=== PATIENT | male | born 1955 | race Caucasian/White ===

== ENCOUNTER 2018-08-13 14:20 | Inpatient (IN) | payer OTHER ==
[~2018-08-13 14:20] MED LIST: CEFAZOLIN 1 GM INJ; DEXAMETHASONE 4 MG/ML 1 ML INJ; FENTAnyl 50 MCG/ML VIAL; METOCLOPRAMIDE 10 MG INJ; MIDAZOLAM 1 MG/ML 2 ML INJ; ONDANSETRON 4 MG INJ; PHENYLephrine (100 MCG/ML) 5ML SYG; PROPOFOL 20 ML; ROCURONIUM 50 MG INJ; SUGAMMADEX SODIUM 200 MG/2 ML VIAL IV
[2018-08-13] MEDS ORDERED: ACETAMINOPHEN 325 MG TAB PO (16:30)
[2018-08-13] MEDS ORDERED: NACL 0.9% 3 ML SYG IV (16:30)
[2018-08-13] MEDS ORDERED: HYDROCODONE/APAP (5/325) TAB PO (16:30)
[2018-08-13] MEDS ORDERED: ONDANSETRON 4 MG INJ IV (16:30)
[2018-08-13] MEDS ORDERED: DOCUSATE SODIUM 100 MG CAP PO (16:30)
[2018-08-13] MEDS: metroNIDAZOLE 500 MG/NS (PMX) 100 ML IVPB ×2 (17:34→23:19)
[2018-08-13] MEDS: SOD CHLORIDE 0.9% 1,000 ML IV (17:34)
[2018-08-13] MEDS: CIPROFLOXACIN 400MG/D5W 200 ML IVPB (20:20)
[2018-08-14 05:01] LABS: ADD MAN DIFF? NO
[2018-08-14 05:02] LABS: BASOPHILS % 0.2 % (0.0-2.0); EOSINOPHILS # 0.1 10^3/ul (0.0-0.5); EOSINOPHILS % 1.1 % (0.0-7.0); HEMATOCRIT 39.5 % (42.0-52.0); HEMOGLOBIN 13.4 g/dl (14.0-18.0); LYMPHOCYTES # 0.8 10^3/ul (0.8-2.9); LYMPHOCYTES % 12.3 % (15.0-51.0); MEAN CORPUSCULAR HEMOGLOBIN 32.2 pg (29.0-33.0); MEAN CORPUSCULAR HGB CONC 33.9 g/dl (32.0-37.0); MEAN PLATELET VOLUME 9.3 fl (7.4-10.4); MONOCYTE # 0.3 10^3/ul (0.3-0.9); MONOCYTES % 5.4 % (0.0-11.0); PLATELET COUNT 173 10^3/UL (140-415); RED BLOOD COUNT 4.16 10^6/ul (4.70-6.10); RED CELL DISTRIBUTION WIDTH 13.2 % (11.5-14.5)
[2018-08-14 05:02] LABS: WHITE BLOOD COUNT 6.3 10^3/ul (4.8-10.8)
[2018-08-14 05:28] LABS: INR 1.24; PROTIME 15.8 Sec (11.9-14.9); PT RATIO 1.2
[2018-08-14 05:35] LABS: ALANINE AMINOTRANSFERASE 97 IU/L (13-69); ALBUMIN/GLOBULIN RATIO 0.88; ALKALINE PHOSPHATASE 177 IU/L (42-121); ANION GAP 10 (8-16); ASPARTATE AMINO TRANSFERASE 63 IU/L (15-46); BILIRUBIN,INDIRECT 1.3 mg/dl (0-1.1); BILIRUBIN,TOTAL 2.3 mg/dl (0.2-1.3); BLOOD UREA NITROGEN 13 mg/dl (7-20); CALCIUM 8.3 mg/dl (8.4-10.2); CARBON DIOXIDE 28 mmol/L (21-31); CHLORIDE 105 mmol/L (97-110); CREATININE 0.87 mg/dl (0.61-1.24); GLUCOSE 105 mg/dl (70-220); MAGNESIUM 2.1 mg/dl (1.7-2.5); PHOSPHORUS 3.1 mg/dl (2.5-4.9); SODIUM 139 mmol/L (135-144); TOTAL PROTEIN 6.4 g/dl (6.1-8.1)
[2018-08-14] MEDS: PANTOPRAZOLE 40 MG INJ IV (06:16)
[2018-08-14] MEDS: metroNIDAZOLE 500 MG/NS (PMX) 100 ML IVPB ×3 (06:16→22:07)
[2018-08-14] MEDS: IBUPROFEN 600 MG TAB PO (06:18)
[2018-08-14] MEDS: SOD CHLORIDE 0.9% 1,000 ML IV ×2 (06:50→14:16)
[2018-08-14 08:18] LABS: HEMOGLOBIN A1C 5.4 % (0-5.9)
[2018-08-14] MEDS: CIPROFLOXACIN 400MG/D5W 200 ML IVPB ×2 (08:42→20:52)
[2018-08-14] MEDS ORDERED: IOHEXOL 300MG/ML 30 ML BTL (15:21)
[2018-08-14] MEDS ORDERED: INDOMETHACIN 50 MG SUPP PR (15:30)
[2018-08-14] MEDS ORDERED: METOCLOPRAMIDE 10 MG INJ IV (16:00)
[2018-08-14] MEDS ORDERED: DIPHENHYDRAMINE 50 MG INJ IV (16:00)
[2018-08-14] MEDS ORDERED: MEPERIDINE 25 MG INJ IV (16:00)
[2018-08-14] MEDS ORDERED: FENTAnyl 50 MCG/ML VIAL IV ×2 (16:00)
[2018-08-14] MEDS ORDERED: ONDANSETRON 4 MG INJ IV (16:00)
[2018-08-14] MEDS ORDERED: EPHEDrine SULFATE 50 MG/5 ML SYG IV (16:00)
[2018-08-14] MEDS ORDERED: hydrALAzine 20 MG INJ IV (16:00)
[2018-08-14] MEDS ORDERED: HYDROmorphONE 1 MG/5 ML IV SYRINGE IV ×2 (16:00)
[2018-08-14] MEDS ORDERED: LABETALOL HCL 20MG INJ IV (16:00)
[2018-08-15 05:16] LABS: ADD MAN DIFF? NO
[2018-08-15 05:20] LABS: WHITE BLOOD COUNT 4.9 10^3/ul (4.8-10.8)
[2018-08-15 05:20] LABS: ABNORMAL IP MESSAGE 1; HEMATOCRIT 40.2 % (42.0-52.0); HEMOGLOBIN 13.7 g/dl (14.0-18.0); LYMPHOCYTES # 0.4 10^3/ul (0.8-2.9); LYMPHOCYTES % 8.4 % (15.0-51.0); MEAN CORPUSCULAR HEMOGLOBIN 32.2 pg (29.0-33.0); MEAN CORPUSCULAR HGB CONC 34.1 g/dl (32.0-37.0); MEAN CORPUSCULAR VOLUME 94.4 fl (82.0-101.0); MEAN PLATELET VOLUME 9.2 fl (7.4-10.4); MONOCYTE # 0.2 10^3/ul (0.3-0.9); MONOCYTES % 4.1 % (0.0-11.0); NEUTROPHIL # 4.2 10^3/ul (1.6-7.5); NEUTROPHILS % 86.7 % (39.0-77.0); PLATELET COUNT 192 10^3/UL (140-415); POSITIVE DIFF @See below; RED BLOOD COUNT 4.26 10^6/ul (4.70-6.10); RED CELL DISTRIBUTION WIDTH 12.5 % (11.5-14.5)
[2018-08-15 05:42] LABS: ALANINE AMINOTRANSFERASE 65 IU/L (13-69); ALBUMIN 3.3 g/dl (3.3-4.9); ALBUMIN/GLOBULIN RATIO 0.97; ALKALINE PHOSPHATASE 159 IU/L (42-121); ANION GAP 11 (8-16); ASPARTATE AMINO TRANSFERASE 38 IU/L (15-46); BILIRUBIN,INDIRECT 0.6 mg/dl (0-1.1); BILIRUBIN,TOTAL 0.6 mg/dl (0.2-1.3); BLOOD UREA NITROGEN 13 mg/dl (7-20); CALCIUM 8.1 mg/dl (8.4-10.2); CARBON DIOXIDE 29 mmol/L (21-31); CHLORIDE 107 mmol/L (97-110); GLUCOSE 157 mg/dl (70-220); POTASSIUM 4.6 mmol/L (3.5-5.1); SODIUM 142 mmol/L (135-144); TOTAL PROTEIN 6.7 g/dl (6.1-8.1)
[2018-08-15] MEDS: metroNIDAZOLE 500 MG/NS (PMX) 100 ML IVPB ×3 (06:03→22:51)
[2018-08-15] MEDS: PANTOPRAZOLE 40 MG INJ IV (06:03)
[2018-08-15] MEDS: CIPROFLOXACIN 400MG/D5W 200 ML IVPB ×2 (09:13→20:47)
[2018-08-15] MEDS: SOD CHLORIDE 0.9% 1,000 ML IV (12:21)
[2018-08-16 05:17] LABS: ADD MAN DIFF? NO
[2018-08-16 05:20] LABS: WHITE BLOOD COUNT 5.1 10^3/ul (4.8-10.8)
[2018-08-16 05:20] LABS: BASOPHILS % 0.4 % (0.0-2.0); EOSINOPHILS # 0.1 10^3/ul (0.0-0.5); EOSINOPHILS % 1.2 % (0.0-7.0); HEMATOCRIT 38.3 % (42.0-52.0); LYMPHOCYTES # 1.2 10^3/ul (0.8-2.9); LYMPHOCYTES % 24.2 % (15.0-51.0); MEAN CORPUSCULAR HGB CONC 33.9 g/dl (32.0-37.0); MEAN CORPUSCULAR VOLUME 94.3 fl (82.0-101.0); MEAN PLATELET VOLUME 9.2 fl (7.4-10.4); MONOCYTE # 0.3 10^3/ul (0.3-0.9); MONOCYTES % 6.3 % (0.0-11.0); NEUTROPHIL # 3.4 10^3/ul (1.6-7.5); NEUTROPHILS % 67.1 % (39.0-77.0); PLATELET COUNT 183 10^3/UL (140-415); RED BLOOD COUNT 4.06 10^6/ul (4.70-6.10); RED CELL DISTRIBUTION WIDTH 12.8 % (11.5-14.5)
[2018-08-16] MEDS: PANTOPRAZOLE 40 MG INJ IV (05:23)
[2018-08-16] MEDS: metroNIDAZOLE 500 MG/NS (PMX) 100 ML IVPB ×2 (05:23→14:15)
[2018-08-16 05:39] LABS: ANION GAP 9 (8-16); BLOOD UREA NITROGEN 13 mg/dl (7-20); CALCIUM 8.2 mg/dl (8.4-10.2); CARBON DIOXIDE 29 mmol/L (21-31); CHLORIDE 109 mmol/L (97-110); CREATININE 0.89 mg/dl (0.61-1.24); GLUCOSE 116 mg/dl (70-220); POTASSIUM 4.4 mmol/L (3.5-5.1); SODIUM 143 mmol/L (135-144)
[2018-08-16] MEDS: CIPROFLOXACIN 400MG/D5W 200 ML IVPB (08:00)
== END 2018-08-16 16:50 | disposition home or self-care (01) | DRG 920 ==
LOC: MS1 14:20
PROC: 0FPB8DZ Removal of Intraluminal Device from Hepatobiliary Duct, Via Natural or Artificial Opening Endoscopic (ICD-10-PCS; principal; 2018-08-14 13:30)
PROC: 0FC98ZZ Extirpation of Matter from Common Bile Duct, Via Natural or Artificial Opening Endoscopic (ICD-10-PCS; 2018-08-14 13:30)
PROC: 0FB98ZX Excision of Common Bile Duct, Via Natural or Artificial Opening Endoscopic, Diagnostic (ICD-10-PCS; 2018-08-14 13:30)
DX: T85.79XA Infection and inflammatory reaction due to other internal prosthetic devices, implants and grafts, initial encounter (principal); K80.31 Calculus of bile duct with cholangitis, unspecified, with obstruction; E87.1 Hypo-osmolality and hyponatremia; R14.0 Abdominal distension (gaseous); K70.30 Alcoholic cirrhosis of liver without ascites; R16.1 Splenomegaly, not elsewhere classified; D64.9 Anemia, unspecified
CPT/HCPCS: 74330; 80048; 80053; 83036; 83735; 84100; 85025; 85610; 87040; 88305; 88312; 88313; 90686

== ENCOUNTER 2018-09-10 13:58 | Inpatient (IN) | payer OTHER ==
[2018-09-10 16:28] LABS: ADD MAN DIFF? NO
[2018-09-10 16:32] LABS: WHITE BLOOD COUNT 10.1 10^3/ul (4.8-10.8)
[2018-09-10 16:32] LABS: ABNORMAL IP MESSAGE 1; BASOPHILS % 0.3 % (0.0-2.0); EOSINOPHILS % 0.1 % (0.0-7.0); HEMATOCRIT 44.2 % (42.0-52.0); HEMOGLOBIN 15.5 g/dl (14.0-18.0); LYMPHOCYTES # 0.3 10^3/ul (0.8-2.9); LYMPHOCYTES % 3.3 % (15.0-51.0); MEAN CORPUSCULAR HEMOGLOBIN 32.4 pg (29.0-33.0); MEAN CORPUSCULAR HGB CONC 35.1 g/dl (32.0-37.0); MEAN CORPUSCULAR VOLUME 92.3 fl (82.0-101.0); MEAN PLATELET VOLUME 9.8 fl (7.4-10.4); MONOCYTE # 0.5 10^3/ul (0.3-0.9); MONOCYTES % 5.3 % (0.0-11.0); NEUTROPHIL # 9.1 10^3/ul (1.6-7.5); NEUTROPHILS % 89.8 % (39.0-77.0); PLATELET COUNT 211 10^3/UL (140-415); POSITIVE DIFF @See below; RED BLOOD COUNT 4.79 10^6/ul (4.70-6.10); RED CELL DISTRIBUTION WIDTH 12.3 % (11.5-14.5)
[2018-09-10] MEDS: ONDANSETRON 4 MG INJ IV (16:36)
[2018-09-10] MEDS: SODIUM CHLORIDE 0.9% 1L BAG IV* (16:36)
[2018-09-10] MEDS: PIPER-TAZO 3.375 GM IV (PMX) 100 ML IVPB (16:37)
[2018-09-10 16:46] LABS: ADD UMIC NO; UR ASCORBIC ACID NEGATIVE (NEGATIVE); UR BILIRUBIN (Dip) 1+ mg/dL (NEGATIVE); UR BLOOD (Dip) NEGATIVE (NEGATIVE); UR CLARITY CLEAR (CLEAR); UR COLOR AMBER (YELLOW); UR GLUCOSE (Dip) 1+ mg/dL (NEGATIVE); UR KETONES (Dip) NEGATIVE (NEGATIVE); UR LEUKOCYTE ESTERASE (Dip) NEGATIVE Leu/ul (NEGATIVE); UR NITRITE (Dip) NEGATIVE (NEGATIVE); UR SPECIFIC GRAVITY (Dip) 1.019 (1.003-1.030); UR TOTAL PROTEIN (Dip) NEGATIVE (NEGATIVE); UR UROBILINOGEN (Dip) 2+ mg/dL (NEGATIVE)
[2018-09-10 16:48] LABS: ALANINE AMINOTRANSFERASE 144 IU/L (13-69); ALBUMIN 3.9 g/dl (3.3-4.9); ALKALINE PHOSPHATASE 504 IU/L (42-121); ANION GAP 13 (5-13); ASPARTATE AMINO TRANSFERASE 75 IU/L (15-46); BILIRUBIN,INDIRECT 0.9 mg/dl (0-1.1); BILIRUBIN,TOTAL 3.3 mg/dl (0.2-1.3); BLOOD UREA NITROGEN 13 mg/dl (7-20); CALCIUM 9.4 mg/dl (8.4-10.2); CARBON DIOXIDE 23 mmol/L (21-31); CHLORIDE 101 mmol/L (97-110); Estimated GFR > 60 mL/min (>60); GLUCOSE 148 mg/dl (70-220); LIPASE 94 U/L (23-300); POTASSIUM 4.3 mmol/L (3.5-5.1); SODIUM 137 mmol/L (135-144); TOTAL PROTEIN 7.8 g/dl (6.1-8.1)
[2018-09-10 16:49] LABS: LACTIC ACID 1.8 mmol/L (0.5-2.0)
[2018-09-10 16:53] LABS: INR 0.95; PARTIAL THROMBOPLASTIN TIME 26.7 Sec (23.0-35.0); PROTIME 12.8 Sec (11.9-14.9)
[2018-09-10 17:00] LABS: TROPONIN-I < 0.012 ng/ml (0.000-0.120)
[2018-09-10] MEDS: morphine 4 MG/ML VIAL IV (17:26)
[2018-09-10] MEDS: IBUPROFEN 600 MG TAB PO (17:26)
[2018-09-10] MEDS: VANCOMYCIN 1 GM (PMX) 250 ML IVPB (17:27)
[2018-09-10 19:04] LABS: LACTIC ACID 0.9 mmol/L (0.5-2.0)
[2018-09-10] MEDS ORDERED: DOCUSATE SODIUM 100 MG CAP PO (19:30)
[2018-09-10] MEDS ORDERED: NACL 0.9% 3 ML SYG IV (19:30)
[2018-09-10] MEDS ORDERED: ACETAMINOPHEN 325 MG TAB PO ×2 (19:30)
[2018-09-10] MEDS ORDERED: ACETAMINOPHEN 650 MG SUPP PR (19:30)
[2018-09-10] MEDS: DEXTROSE 5%-0.45% NACL 1,000 ML IV (20:23)
[2018-09-10] MEDS: CEFTRIAXONE 1 GM/50 ML (PMX) 50 ML IVPB (20:24)
[2018-09-10 21:00] LABS: LACTIC ACID 0.7 mmol/L (0.5-2.0)
[2018-09-11] MEDS: URSODIOL 300 MG CAP PO ×3 (00:41→20:28)
[2018-09-11 05:34] LABS: ADD MAN DIFF? NO
[2018-09-11 05:40] LABS: WHITE BLOOD COUNT 6.4 10^3/ul (4.8-10.8)
[2018-09-11 05:40] LABS: BASOPHILS % 0.6 % (0.0-2.0); EOSINOPHILS # 0.1 10^3/ul (0.0-0.5); EOSINOPHILS % 0.8 % (0.0-7.0); HEMATOCRIT 40.2 % (42.0-52.0); HEMOGLOBIN 13.7 g/dl (14.0-18.0); LYMPHOCYTES # 0.7 10^3/ul (0.8-2.9); LYMPHOCYTES % 11.5 % (15.0-51.0); MEAN CORPUSCULAR HEMOGLOBIN 31.9 pg (29.0-33.0); MEAN CORPUSCULAR HGB CONC 34.1 g/dl (32.0-37.0); MEAN CORPUSCULAR VOLUME 93.7 fl (82.0-101.0); MEAN PLATELET VOLUME 10.1 fl (7.4-10.4); MONOCYTE # 0.5 10^3/ul (0.3-0.9); MONOCYTES % 7.9 % (0.0-11.0); NEUTROPHIL # 4.9 10^3/ul (1.6-7.5); NEUTROPHILS % 76.5 % (39.0-77.0); PLATELET COUNT 187 10^3/UL (140-415); RED BLOOD COUNT 4.29 10^6/ul (4.70-6.10); RED CELL DISTRIBUTION WIDTH 12.6 % (11.5-14.5)
[2018-09-11 06:28] LABS: ALANINE AMINOTRANSFERASE 129 IU/L (13-69); ALBUMIN 3.4 g/dl (3.3-4.9); ALBUMIN/GLOBULIN RATIO 0.89; ALKALINE PHOSPHATASE 390 IU/L (42-121); ANION GAP 8 (5-13); ASPARTATE AMINO TRANSFERASE 86 IU/L (15-46); BILIRUBIN,INDIRECT 0.9 mg/dl (0-1.1); BLOOD UREA NITROGEN 10 mg/dl (7-20); CALCIUM 8.6 mg/dl (8.4-10.2); CARBON DIOXIDE 26 mmol/L (21-31); CHLORIDE 106 mmol/L (97-110); CREATININE 0.72 mg/dl (0.61-1.24); Estimated GFR > 60 mL/min (>60); GLUCOSE 114 mg/dl (70-220); POTASSIUM 3.9 mmol/L (3.5-5.1); SODIUM 140 mmol/L (135-144); TOTAL PROTEIN 7.2 g/dl (6.1-8.1)
[2018-09-11] MEDS: morphine 2 MG INJ IV (06:30)
[2018-09-11 09:03] LABS: HEMOGLOBIN A1C 5.3 % (0-5.9)
[2018-09-11] MEDS: PANTOPRAZOLE (EC) 40 MG TAB PO (09:30)
[2018-09-11] MEDS: LOSARTAN 50 MG TAB PO (09:31)
[2018-09-11] MEDS: DEXTROSE 5%-0.45% NACL 1,000 ML IV ×2 (12:00→23:09)
[2018-09-11] MEDS: metroNIDAZOLE 500 MG/NS (PMX) 100 ML IVPB ×2 (15:16→22:58)
[2018-09-11] MEDS: CEFTRIAXONE 1 GM/50 ML (PMX) 50 ML IVPB (20:28)
[2018-09-12 05:26] LABS: WHITE BLOOD COUNT 5.3 10^3/ul (4.8-10.8)
[2018-09-12 05:26] LABS: ADD MAN DIFF? NO; BASOPHILS % 0.8 % (0.0-2.0); EOSINOPHILS # 0.1 10^3/ul (0.0-0.5); EOSINOPHILS % 1.9 % (0.0-7.0); HEMATOCRIT 40.8 % (42.0-52.0); HEMOGLOBIN 14.1 g/dl (14.0-18.0); LYMPHOCYTES # 0.9 10^3/ul (0.8-2.9); LYMPHOCYTES % 17.5 % (15.0-51.0); MEAN CORPUSCULAR HEMOGLOBIN 32.2 pg (29.0-33.0); MEAN CORPUSCULAR HGB CONC 34.6 g/dl (32.0-37.0); MEAN CORPUSCULAR VOLUME 93.2 fl (82.0-101.0); MEAN PLATELET VOLUME 9.9 fl (7.4-10.4); MONOCYTE # 0.4 10^3/ul (0.3-0.9); MONOCYTES % 7.4 % (0.0-11.0); NEUTROPHIL # 3.6 10^3/ul (1.6-7.5); NEUTROPHILS % 67.6 % (39.0-77.0); PLATELET COUNT 220 10^3/UL (140-415); RED BLOOD COUNT 4.38 10^6/ul (4.70-6.10); RED CELL DISTRIBUTION WIDTH 12.4 % (11.5-14.5)
[2018-09-12] MEDS: metroNIDAZOLE 500 MG/NS (PMX) 100 ML IVPB ×3 (05:42→21:33)
[2018-09-12 05:58] LABS: ALANINE AMINOTRANSFERASE 100 IU/L (13-69); ALBUMIN 3.7 g/dl (3.3-4.9); ALBUMIN/GLOBULIN RATIO 1.05; ALKALINE PHOSPHATASE 385 IU/L (42-121); ANION GAP 11 (5-13); ASPARTATE AMINO TRANSFERASE 69 IU/L (15-46); BILIRUBIN,INDIRECT 0.7 mg/dl (0-1.1); BILIRUBIN,TOTAL 2.7 mg/dl (0.2-1.3); BLOOD UREA NITROGEN 12 mg/dl (7-20); CALCIUM 8.9 mg/dl (8.4-10.2); CARBON DIOXIDE 26 mmol/L (21-31); CHLORIDE 103 mmol/L (97-110); CREATININE 0.75 mg/dl (0.61-1.24); Estimated GFR > 60 mL/min (>60); GLUCOSE 146 mg/dl (70-220); POTASSIUM 4.1 mmol/L (3.5-5.1); SODIUM 140 mmol/L (135-144); TOTAL PROTEIN 7.2 g/dl (6.1-8.1)
[2018-09-12] MEDS: URSODIOL 300 MG CAP PO ×3 (09:00→21:33)
[2018-09-12] MEDS: PANTOPRAZOLE (EC) 40 MG TAB PO ×2 (09:00→12:57)
[2018-09-12] MEDS: LOSARTAN 50 MG TAB PO ×2 (09:00→12:58)
[2018-09-12] MEDS: DEXTROSE 5%-0.45% NACL 1,000 ML IV (09:39)
[2018-09-12] MEDS: AMLODIPINE 5 MG TAB PO (12:57)
[2018-09-12] MEDS: morphine 2 MG INJ IV (19:38)
[2018-09-12] MEDS: CEFTRIAXONE 1 GM/50 ML (PMX) 50 ML IVPB (19:38)
[2018-09-13 04:52] LABS: ADD MAN DIFF? NO
[2018-09-13 04:54] LABS: ABNORMAL IP MESSAGE 1; BASOPHIL # 0.1 10^3/ul (0.0-0.1); BASOPHILS % 1.4 % (0.0-2.0); EOSINOPHILS # 0.1 10^3/ul (0.0-0.5); EOSINOPHILS % 2.4 % (0.0-7.0); HEMATOCRIT 42.3 % (42.0-52.0); HEMOGLOBIN 14.4 g/dl (14.0-18.0); LYMPHOCYTES % 16.6 % (15.0-51.0); MEAN CORPUSCULAR HEMOGLOBIN 31.4 pg (29.0-33.0); MEAN CORPUSCULAR VOLUME 92.4 fl (82.0-101.0); MEAN PLATELET VOLUME 9.5 fl (7.4-10.4); MONOCYTE # 0.4 10^3/ul (0.3-0.9); MONOCYTES % 7.5 % (0.0-11.0); NEUTROPHIL # 3.7 10^3/ul (1.6-7.5); NEUTROPHILS % 64.8 % (39.0-77.0); PLATELET COUNT 247 10^3/UL (140-415); POSITIVE DIFF @See below; RED BLOOD COUNT 4.58 10^6/ul (4.70-6.10); RED CELL DISTRIBUTION WIDTH 12.4 % (11.5-14.5)
[2018-09-13 04:54] LABS: WHITE BLOOD COUNT 5.7 10^3/ul (4.8-10.8)
[2018-09-13] MEDS: DEXTROSE 5%-0.45% NACL 1,000 ML IV ×2 (05:10→21:12)
[2018-09-13] MEDS: metroNIDAZOLE 500 MG/NS (PMX) 100 ML IVPB ×3 (05:10→22:09)
[2018-09-13 05:17] LABS: AMYLASE 63 U/L (11-123)
[2018-09-13 05:25] LABS: ALANINE AMINOTRANSFERASE 95 IU/L (13-69); ALBUMIN 3.7 g/dl (3.3-4.9); ALBUMIN/GLOBULIN RATIO 1.08; ALKALINE PHOSPHATASE 396 IU/L (42-121); ANION GAP 11 (5-13); ASPARTATE AMINO TRANSFERASE 62 IU/L (15-46); BILIRUBIN,INDIRECT 0.7 mg/dl (0-1.1); BILIRUBIN,TOTAL 2.2 mg/dl (0.2-1.3); BLOOD UREA NITROGEN 12 mg/dl (7-20); CALCIUM 8.8 mg/dl (8.4-10.2); CARBON DIOXIDE 26 mmol/L (21-31); CHLORIDE 104 mmol/L (97-110); CREATININE 0.84 mg/dl (0.61-1.24); Estimated GFR > 60 mL/min (>60); GLUCOSE 127 mg/dl (70-220); POTASSIUM 4.2 mmol/L (3.5-5.1); SODIUM 141 mmol/L (135-144); TOTAL PROTEIN 7.1 g/dl (6.1-8.1)
[2018-09-13 05:46] LABS: CARCINOEMBRYONIC ANTIGEN 1.7 ng/ml (0.0-5.0)
[2018-09-13 05:51] LABS: CANCER ANTIGEN 19-9 51.4 U/ml (0.0-37.0)
[2018-09-13] MEDS: URSODIOL 300 MG CAP PO ×2 (09:06→21:06)
[2018-09-13] MEDS: LOSARTAN 50 MG TAB PO (09:06)
[2018-09-13] MEDS: PANTOPRAZOLE (EC) 40 MG TAB PO (09:06)
[2018-09-13] MEDS: AMLODIPINE 5 MG TAB PO (09:07)
[2018-09-13] MEDS: BISACODYL (EC) 5 MG TAB PO (09:07)
[2018-09-13] MEDS: MAGNESIUM HYDROXIDE 30ML CUP PO (09:07)
[2018-09-13] MEDS: DOCUSATE SODIUM 100 MG CAP PO (09:07)
[2018-09-13] MEDS: morphine LIQ (10 MG/5 ML) CUP PO (18:51)
[2018-09-13] MEDS: CEFTRIAXONE 1 GM/50 ML (PMX) 50 ML IVPB (21:06)
[2018-09-13] MEDS: ONDANSETRON 4 MG INJ IV (21:12)
[2018-09-14] MEDS: metroNIDAZOLE 500 MG/NS (PMX) 100 ML IVPB ×3 (06:11→22:07)
[2018-09-14] MEDS: URSODIOL 300 MG CAP PO ×2 (09:00→20:59)
[2018-09-14] MEDS: PANTOPRAZOLE (EC) 40 MG TAB PO (09:00)
[2018-09-14] MEDS: DEXTROSE 5%-0.45% NACL 1,000 ML IV ×2 (09:06→22:07)
[2018-09-14] MEDS: LOSARTAN 50 MG TAB PO (10:08)
[2018-09-14] MEDS: AMLODIPINE 5 MG TAB PO (10:08)
[2018-09-14] MEDS ORDERED: PROPOFOL 20 ML (16:25)
[2018-09-14] MEDS ORDERED: ROCURONIUM 50 MG INJ (16:25)
[2018-09-14] MEDS ORDERED: NEOSTIGMINE 3 MG/3 ML SYRINGE (16:25)
[2018-09-14] MEDS ORDERED: GLYCOPYRROLATE 0.4 MG INJ (16:25)
[2018-09-14] MEDS ORDERED: CEFAZOLIN 1 GM INJ (16:25)
[2018-09-14] MEDS ORDERED: ONDANSETRON 4 MG INJ (16:28)
[2018-09-14] MEDS ORDERED: FENTAnyl 50 MCG/ML VIAL (16:28)
[2018-09-14] MEDS ORDERED: DEXAMETHASONE 4 MG/ML 1 ML INJ (16:28)
[2018-09-14] MEDS ORDERED: MIDAZOLAM 1 MG/ML 2 ML INJ (16:28)
[2018-09-14] MEDS ORDERED: LABETALOL HCL 20MG INJ IV (17:30)
[2018-09-14] MEDS ORDERED: FENTAnyl 50 MCG/ML VIAL IV ×2 (17:30)
[2018-09-14] MEDS ORDERED: METOCLOPRAMIDE 10 MG INJ IV (17:30)
[2018-09-14] MEDS ORDERED: HYDROmorphONE 1 MG/5 ML IV SYRINGE IV ×2 (17:30)
[2018-09-14] MEDS ORDERED: hydrALAzine 20 MG INJ IV (17:30)
[2018-09-14] MEDS ORDERED: MEPERIDINE 25 MG INJ IV (17:30)
[2018-09-14] MEDS ORDERED: ONDANSETRON 4 MG INJ IV (17:30)
[2018-09-14] MEDS ORDERED: SUGAMMADEX SODIUM 200 MG/2 ML VIAL IV (18:18)
[2018-09-14] MEDS: CEFTRIAXONE 1 GM/50 ML (PMX) 50 ML IVPB (20:59)
[2018-09-15 05:15] LABS: ADD MAN DIFF? NO
[2018-09-15 05:18] LABS: WHITE BLOOD COUNT 5.3 10^3/ul (4.8-10.8)
[2018-09-15 05:18] LABS: ABNORMAL IP MESSAGE 1; BASOPHILS % 0.4 % (0.0-2.0); HEMATOCRIT 42.7 % (42.0-52.0); HEMOGLOBIN 14.5 g/dl (14.0-18.0); LYMPHOCYTES # 0.5 10^3/ul (0.8-2.9); LYMPHOCYTES % 9.7 % (15.0-51.0); MEAN CORPUSCULAR HEMOGLOBIN 31.9 pg (29.0-33.0); MEAN CORPUSCULAR VOLUME 94.1 fl (82.0-101.0); MEAN PLATELET VOLUME 9.7 fl (7.4-10.4); MONOCYTE # 0.1 10^3/ul (0.3-0.9); MONOCYTES % 2.1 % (0.0-11.0); NEUTROPHIL # 4.3 10^3/ul (1.6-7.5); NEUTROPHILS % 81.2 % (39.0-77.0); PLATELET COUNT 261 10^3/UL (140-415); POSITIVE DIFF @See below; RED BLOOD COUNT 4.54 10^6/ul (4.70-6.10); RED CELL DISTRIBUTION WIDTH 12.3 % (11.5-14.5)
[2018-09-15 05:47] LABS: ALANINE AMINOTRANSFERASE 81 IU/L (13-69); ALBUMIN 3.7 g/dl (3.3-4.9); ALBUMIN/GLOBULIN RATIO 0.97; ALKALINE PHOSPHATASE 381 IU/L (42-121); ANION GAP 8 (5-13); ASPARTATE AMINO TRANSFERASE 50 IU/L (15-46); BILIRUBIN,INDIRECT 0.9 mg/dl (0-1.1); BILIRUBIN,TOTAL 1.3 mg/dl (0.2-1.3); BLOOD UREA NITROGEN 16 mg/dl (7-20); CALCIUM 8.5 mg/dl (8.4-10.2); CARBON DIOXIDE 26 mmol/L (21-31); CHLORIDE 103 mmol/L (97-110); CREATININE 0.89 mg/dl (0.61-1.24); Estimated GFR > 60 mL/min (>60); GLUCOSE 208 mg/dl (70-220); POTASSIUM 4.7 mmol/L (3.5-5.1); SODIUM 137 mmol/L (135-144); TOTAL PROTEIN 7.5 g/dl (6.1-8.1)
[2018-09-15 06:06] LABS: PHOSPHORUS 4.5 mg/dl (2.5-4.9)
[2018-09-15 06:06] LABS: MAGNESIUM 2.1 mg/dl (1.7-2.5)
[2018-09-15] MEDS: metroNIDAZOLE 500 MG/NS (PMX) 100 ML IVPB (06:18)
[2018-09-15 06:55] LABS: BAND NEUTROPHILS #M 0.4 10^3/ul (0.0-0.6); BAND NEUTROPHILS % (M) 9 % (0-4); LYMPHOCYTES #M 0.6 10^3/ul (0.8-2.9); LYMPHOCYTES % (M) 12 % (15-51); METAMYELOCYTES #M 0.1 10^3/ul (0.0-0.0); METAMYELOCYTES %M 2 % (0-0); MONOCYTES % (M) 1 % (0-11); MYELOCYTES #M 0.1 10^3/ul (0.0-0.0); MYELOCYTES % (M) 3 % (0-0); PLATELET ESTIMATE NORMAL; POLYCHROMASIA 3+ (0-0); SEG NEUT #M 3.9 10^3/ul (1.6-7.5); SEGMENTED NEUTROPHILS (M) % 73 % (39-77); SMUDGE%M 9 % (0-0)
[2018-09-15] MEDS: AMLODIPINE 5 MG TAB PO (08:35)
[2018-09-15] MEDS: PANTOPRAZOLE (EC) 40 MG TAB PO (08:35)
[2018-09-15] MEDS: LOSARTAN 50 MG TAB PO (08:36)
[2018-09-15] MEDS: URSODIOL 300 MG CAP PO (08:36)
== END 2018-09-15 15:30 | disposition home or self-care (01) | DRG 444 ==
LOC: E/R 13:58 → MS1 17:52
PROC: 0FC98ZZ Extirpation of Matter from Common Bile Duct, Via Natural or Artificial Opening Endoscopic (ICD-10-PCS; principal; 2018-09-14 13:00)
PROC: 0F798DZ Dilation of Common Bile Duct with Intraluminal Device, Via Natural or Artificial Opening Endoscopic (ICD-10-PCS; 2018-09-14 13:00)
PROC: 4A1BXSH Monitoring of Gastrointestinal Vascular Perfusion using Indocyanine Green Dye, External Approach (ICD-10-PCS; 2018-09-14 13:00)
DX: K80.51 Calculus of bile duct without cholangitis or cholecystitis with obstruction (principal); K72.00 Acute and subacute hepatic failure without coma; K86.1 Other chronic pancreatitis; K70.30 Alcoholic cirrhosis of liver without ascites; R10.13 Epigastric pain; I10 Essential (primary) hypertension; E78.5 Hyperlipidemia, unspecified; D64.9 Anemia, unspecified; R50.9 Fever, unspecified; Z90.49 Acquired absence of other specified parts of digestive tract; Z87.891 Personal history of nicotine dependence
CPT/HCPCS: 36415; 71045; 74181; 74183; 74330; 76700; 80053; 81003; 82150; 82378; 82787; 83036; 83605; 83690; 83735; 84100; 84484; 85025; 85610; 85730; 86301; 87040; 87086; 88305; 93005; 96374; 96375; 99285-25